=== PATIENT | male | born 1990 | race Caucasian/White ===

== ENCOUNTER 2017-05-23 15:50 | Emergency (ER) | payer BC, MEDICAID ==
--- NOTE | 2017-05-23 16:06 | EDM.PDOCBH ---
ED HPI GENERAL MEDICAL PROBLEM - General Chief Complaint: Behavioral/Psych Stated Complaint: [facility] Time Seen by Provider: 05/23/17 15:50 Source of Information: Reports: Patient, EMS History Limitations: Reports: No Limitations - History of Present Illness INITIAL COMMENTS - FREE TEXT/NARRATIVE: Patient is a 27-year-old male who attempted to commit suicide by choking himself with a karate belt. Patient states he was sitting at the edge of the bed and pulling on the belt from each side attempting to kill himself. Patient also cut his left wrist with a sharp knife. He states he has attempted to commit suicide 3 times in the past requiring inpatient treatment. The reason why he is suicidal is because he's been out of work since this past June. Found out that he was overdrawn today thus prompted to kill himself. He has not taken any medications or alcohol in excess. He is on no medications at this time for his depression/anxiety. Denies any recent alcohol use, recreational drug use, excessive acetaminophen, and excessive salicylates. Of note patient also attempted to cut his neck with a dull butter note. States he attempted to stab himself in the belly with a knife. Did not penetrate the shirt. He denies any auditory or visual hallucinations. - Related Data Allergies Allergy/AdvReac Type Severity Reaction Status Date / Time Iodinated Contrast- Oral and Allergy Shortness Verified 05/23/17 16:06 IV Dye of Breath [Iodinated Contrast Media - IV Dye] latex Allergy Hives Verified 05/23/17 16:06 Sulfa (Sulfonamide Allergy Hives Verified 05/23/17 16:06 Antibiotics) Home Meds: Home Meds . [No Known Home Meds] 10/23/15 [History] Past Medical History HEENT History: Reports: Other (See Below) Other HEENT History: impaired vision Gastrointestinal History: Reports: GERD Psychiatric History: Reports: Anxiety, Bipolar, Depression Social & Family History - Tobacco Use Smoking Status *Q: Current Some Day Smoker Years of Tobacco use: 10 Packs/Tins Daily: 0.2 - Alcohol Use Days Per Week of Alcohol Use: 0 - Recreational Drug Use Recreational Drug Use: No ED ROS GENERAL - Review of Systems Review Of Systems: ROS reveals no pertinent complaints other than HPI. ED EXAM, BEHAVIORAL HEALTH - Physical Exam Exam: See Below Exam Limited By: No Limitations General Appearance: Alert, WD/WN, Anxious, Other (cyring) Eye Exam: Bilateral Eye: PERRL Ears: Hearing Grossly Normal Nose: Normal Inspection Throat/Mouth: Normal Inspection, Normal Oropharynx, Normal Voice, No Airway Compromise Head: Atraumatic, Normocephalic Neck: Supple, Non-Tender, Full Range of Motion, Other (mild redness to the neck where belt was taunt. No pain with palpation. No expanding hematoma. No difficulties with swallowing. No change in voice noted. Patient has full range of motion.) Respiratory/Chest: No Respiratory Distress, Lungs Clear, No Accessory Muscle Use , Chest Non-Tender, Respiratory Distress Cardiovascular: Normal Peripheral Pulses, Regular Rate, Rhythm GI/Abdominal: Normal Bowel Sounds, Soft, Non-Tender, No Organomegaly, No Distention, Other (No puncture wounds to belly.) Extremities: Normal Range of Motion, Non-Tender, No Pedal Edema, Normal Capillary Refill, Other (Single superficial laceration to the left forearm. This measures approximately 0.5 cm. No bleeding present.) Neurological: Alert, Normal Mood/Affect, CN II-XII Intact, Normal Cognition, No Motor/Sensory Deficits, Oriented x 3 Psychiatric: Alert, Normal Affect, Normal Cognition, Oriented, Tearful, Suicidal Thoughts. No: Homicidal Thoughts, Auditory Hallucinations, Visual Hallucinations Skin Exam: Warm, Dry COURSE, BEHAVIORAL HEALTH COMP - Course Vital Signs: Last Vital Signs Temp 99.1 F 05/23/17 16:01 Pulse 95 05/23/17 16:01 Resp 16 05/23/17 16:01 BP 137/88 05/23/17 16:01 Pulse Ox 99 05/23/17 16:01 Orders, Labs, Meds: Active Orders 24 hr Category Date Time Status EKG Documentation Completion [RC] STAT Care 05/23/17 15:59 Active Laboratory Tests 05/23/17 05/23/17 05/23/17 Range/Units 16:10 16:10 16:10 WBC 4.49 (4.23-9.07) K/mm3 RBC 5.18 (4.63-6.08) M/mm3 Hgb 15.5 (13.7-17.5) gm/L Hct 44.0 (40.1-51.0) % MCV 84.9 (79.0-92.2) fl MCH 29.9 (25.7-32.2) pg MCHC 35.2 (32.2-35.5) g/dl RDW Std Deviation 39.9 (35.1-43.9) fL Plt Count 201 (163-337) K/mm3 MPV 9.7 (9.4-12.3) fl Neut % (Auto) 21.9 L (34.0-67.9) % Lymph % (Auto) 57.7 H (21.8-53.1) % Gray % (Auto) 12.0 (5.3-12.2) % Eos % (Auto) 7.1 H (0.8-7.0) Baso % (Auto) 0.9 (0.1-1.2) % Neut # (Auto) 0.98 L (1.78-5.38) K/mm3 Lymph # (Auto) 2.59 (1.32-3.57) K/mm3 Gray # (Auto) 0.54 (0.30-0.82) K/mm3 Eos # (Auto) 0.32 (0.04-0.54) K/mm3 Baso # (Auto) 0.04 (0.01-0.08) K/mm3 Manual Slide Review Abnormal smear Sodium 141 (136-145) mEq/L Potassium 3.3 L (3.5-5.1) mEq/L Chloride 107 (98-107) mEq/L Carbon Dioxide 25 (21-32) mEq/L Anion Gap 12.3 (5-15) BUN 14 (7-18) mg/dL Creatinine 1.1 (0.7-1.3) mg/dL Est Cr Clr Drug Dosing 109.74 mL/min Estimated GFR (MDRD) > 60 (>60) mL/min BUN/Creatinine Ratio 12.7 L (14-18) Glucose 106 (74-106) mg/dL Calcium 8.5 (8.5-10.1) mg/dL Total Bilirubin 0.4 (0.2-1.0) mg/dL AST 23 (15-37) U/L ALT 50 (16-63) U/L Alkaline Phosphatase 86 (46-116) U/L Total Protein 7.4 (6.4-8.2) g/dl Albumin 3.7 (3.4-5.0) g/dl Globulin 3.7 gm/dL Albumin/Globulin Ratio 1.0 (1-2) TSH 3rd Generation 1.195 (0.358-3.74) uIU/mL Salicylates 2.1 L (2.8-20) mg/dL Acetaminophen 0 L (10-30) ug/mL Ethyl Alcohol (0.00) gm% 05/23/17 Range/Units 16:10 WBC (4.23-9.07) K/mm3 RBC (4.63-6.08) M/mm3 Hgb (13.7-17.5) gm/L Hct (40.1-51.0) % MCV (79.0-92.2) fl MCH (25.7-32.2) pg MCHC (32.2-35.5) g/dl RDW Std Deviation (35.1-43.9) fL Plt Count (163-337) K/mm3 MPV (9.4-12.3) fl Neut % (Auto) (34.0-67.9) % Lymph % (Auto) (21.8-53.1) % Gray % (Auto) (5.3-12.2) % Eos % (Auto) (0.8-7.0) Baso % (Auto) (0.1-1.2) % Neut # (Auto) (1.78-5.38) K/mm3 Lymph # (Auto) (1.32-3.57) K/mm3 Gray # (Auto) (0.30-0.82) K/mm3 Eos # (Auto) (0.04-0.54) K/mm3 Baso # (Auto) (0.01-0.08) K/mm3 Manual Slide Review Sodium (136-145) mEq/L Potassium (3.5-5.1) mEq/L Chloride (98-107) mEq/L Carbon Dioxide (21-32) mEq/L Anion Gap (5-15) BUN (7-18) mg/dL Creatinine (0.7-1.3) mg/dL Est Cr Clr Drug Dosing mL/min Estimated GFR (MDRD) (>60) mL/min BUN/Creatinine Ratio (14-18) Glucose (74-106) mg/dL Calcium (8.5-10.1) mg/dL Total Bilirubin (0.2-1.0) mg/dL AST (15-37) U/L ALT (16-63) U/L Alkaline Phosphatase (46-116) U/L Total Protein (6.4-8.2) g/dl Albumin (3.4-5.0) g/dl Globulin gm/dL Albumin/Globulin Ratio (1-2) TSH 3rd Generation (0.358-3.74) uIU/mL Salicylates (2.8-20) mg/dL Acetaminophen (10-30) ug/mL Ethyl Alcohol 0.00 (0.00) gm% Re-Assessment/Re-Exam: Ordered basic labs including: CBC, C14, UA, drug screen, tsh, salicylate, acetaminophen, and EKG. EKG Sinus rhythm rate of [address] changes. Laceration to left forearm approximated with Steri-Strips. Patient refuses tetanus update. Labs reviewed: CBC essentially normal. Potassium mildly low at 3.3, TSH 1.195. Salicylates 2.1 low. Acetaminophen 0.0 low. UA and urine drug tox pending. [address] Keith honing machine set up operator psych provider at [facility]. She has accepted the patient. Requests all ED documentation along with 24 hr Emergency hold be faxed so that she can review. . A's is call back requesting cervical x-rays be obtained prior to transport. This been ordered. On initial exam patient has no pain with palpation of midline spine, paraspinal, lateral, and or anterior neck. 1909 [facility] Department initially stated they had someone to transport with initial call, but as of now do not. X-ray of the cervical spine reviewed with Dr. Arias with no acute bony abnormalities noted. Serum EtOH 0.00. For some reason urine drug tox was ordered but not completed prior to patient leaving. We have arranged a ride for the patient with the [facility]. Departure - Departure Time of Disposition: 20:05 Disposition: DC/Tfer to Psych Hosp/Unit 65 Condition: Good Clinical Impression: Suicide attempt, Intentional self-harm by strangulation - Discharge Information Referrals: PCP,None [Primary Care Provider] - Forms: ED Department Discharge - My Orders Last 24 Hours: My Active Orders 05/23/17 15:59 EKG Documentation Completion [RC] STAT - Assessment/Plan Last 24 Hours: My Active Orders 05/23/17 15:59 EKG Documentation Completion [RC] STAT
[2017-05-23 16:07] VITALS: BP 146/97
[2017-05-23 17:00] LABS: ACETAMINOPHEN 0 ug/mL (10-30)
--- NOTE | 2017-05-24 09:15 | CR ---
Cervical spine: AP, lateral and odontoid views of the cervical spine were obtained. Comparison: Prior CT cervical spine study of 10/14/11 is available. Vertebral body heights and disc spaces are preserved. Prevertebral soft tissues are normal. Mild scoliosis is seen. No fracture or subluxation is identified. Impression: 1. Mild scoliosis. 2. No additional abnormality is appreciated on three-view cervical spine exam. Diagnostic code #1
== END 2017-05-23 20:05 ==
LOC: JD.ED 15:50
DX: S51.812A Laceration without foreign body of left forearm, initial encounter (principal); F17.210 Nicotine dependence, cigarettes, uncomplicated; Z91.041 Radiographic dye allergy status; Z91.040 Latex allergy status; Z88.2 Allergy status to sulfonamides; X78.1XXA Intentional self-harm by knife, initial encounter
CPT/HCPCS: 36415; 72040; 80053; 84443; 85025; 93005; 99285; G0480; 99284

== ENCOUNTER 2017-07-02 04:49 | Emergency (ER) | payer MEDICAID ==
[2017-07-02 05:07] VITALS: BP 151/95
[2017-07-02] MEDS ORDERED: Alum Hydrox/Mag Hydrox/Simeth 30 ML, Lidocaine 2% 15 ML PO ONE ×2 (05:42)
--- NOTE | 2017-07-02 05:50 | EDM.PDOC ---
ED HPI GENERAL MEDICAL PROBLEM - General Chief Complaint: Gastrointestinal Problem Stated Complaint: FLU SYMPTOMS Time Seen by Provider: 07/02/17 04:50 Source of Information: Reports: Patient, Family History Limitations: Reports: No Limitations - History of Present Illness INITIAL COMMENTS - FREE TEXT/NARRATIVE: This is a 27-year-old male. This morning as he was sleeping he had some reflux and he woke up and vomited 1. He apparently took a couple of Tums and laid back down and the burning started again and he vomited again. He woke up his mother at that time and they decided to bring him to the ER. He's got a history of esophageal reflux for several months if not years and only takes his Tums at home. He has never tried Prilosec or Nexium or any other over-the- counter antacid pill. He also complains of his right lower molar being painful and infected though he does have a dentist appointment on the . He denies any fever or chills he denies any shortness of breath he denies any other acute symptoms. He might have a slight upper respiratory nasal congestion. Abdominal Pain Score (Numeric/FACES): 3 - Related Data Allergies Allergy/AdvReac Type Severity Reaction Status Date / Time Iodinated Contrast- Oral and Allergy Shortness Verified 05/23/17 16:06 IV Dye of Breath [Iodinated Contrast Media - IV Dye] latex Allergy Hives Verified 05/23/17 16:06 Sulfa (Sulfonamide Allergy Hives Verified 05/23/17 16:06 Antibiotics) Home Meds: Home Meds Penicillin V Potassium [IJD: Penicillin V Potassium] 500 mg PO .EVERY 6 HOURS # 40 tab 07/02/17 [Rx] Past Medical History HEENT History: Reports: Other (See Below) Other HEENT History: impaired vision Gastrointestinal History: Reports: GERD Psychiatric History: Reports: Anxiety, Bipolar, Depression Social & Family History - Family History Family Medical History: Noncontributory - Tobacco Use Smoking Status *Q: Current Every Day Smoker Years of Tobacco use: 12 Packs/Tins Daily: 1 - Caffeine Use Caffeine Use: Reports: None - Alcohol Use Days Per Week of Alcohol Use: 1 Number of Drinks Per Day: 1 Total Drinks Per Week: 1 - Recreational Drug Use Recreational Drug Use: No ED ROS GENERAL - Review of Systems Review Of Systems: See Below Constitutional: Denies: Fever, Chills HEENT: Reports: Rhinitis, Other (Tooth pain). Denies: Throat Pain, Throat Swelling Respiratory: Denies: Shortness of Breath, Cough Cardiovascular: Denies: Chest Pain Endocrine: Reports: No Symptoms GI/Abdominal: Reports: Vomiting, Other (Esophageal reflux) : Reports: No Symptoms Musculoskeletal: Reports: No Symptoms Skin: Reports: No Symptoms Neurological: Reports: No Symptoms Psychiatric: Reports: No Symptoms Hematologic/Lymphatic: Reports: No Symptoms ED EXAM, GI/ABD - Physical Exam Exam: See Below Exam Limited By: No Limitations General Appearance: Alert, WD/WN, No Apparent Distress Eyes: Bilateral: Normal Appearance Ears: Normal External Exam, Normal Canal, Normal TMs Nose: Normal Inspection, Clear Rhinorrhea Throat/Mouth: Normal Inspection, Normal Lips, Normal Voice, No Airway Compromise , Other (His right back molar has advanced dental caries noted, no swelling no lymphadenopathy no gum swelling or abscess noted) Head: Normocephalic Neck: Supple, Non-Tender Respiratory/Chest: No Respiratory Distress, Lungs Clear, Normal Breath Sounds Cardiovascular: Regular Rate, Rhythm, No Murmur GI/Abdominal Exam: Soft, Non-Tender Back Exam: Full Range of Motion Extremities: Normal Inspection, Normal Range of Motion Neurological: Alert, Oriented Psychiatric: Normal Affect, Normal Mood Skin Exam: Warm, Dry Course - Vital Signs Last Recorded V/S: Last Vital Signs Temp Pulse 101 H 07/02/17 05:03 Resp 18 07/02/17 05:03 BP 151/95 H 07/02/17 05:03 Pulse Ox 97 07/02/17 05:03 - Orders/Labs/Meds Meds: Medications Discontinued Medications Generic Name Dose Route Start Last Admin Trade Name Raven PRN Reason Stop Dose Admin Al Hydroxide/Mg Hydroxide 30 0 ml 07/02/17 05:42 07/02/17 05:47 ml/ Lidocaine HCl 15 ml PO 07/02/17 05:43 45 ml ONETIME ONE Administration - Re-Assessments/Exams Free Text/Narrative Re-Assessment/Exam: 07/02/17 07:00 Spoke to the patient about his positive influenza B test. I'll provide some antibiotics for his infected back molar and suggests some medications for his reflux that's [id number]. The GI cocktail that he took he says made him feel much better. 07/02/17 07:01 Departure - Departure Time of Disposition: 07:01 Disposition: Home, Self-Care 01 Condition: Good Clinical Impression: Influenza B, Dental infection, Pain, dental Esophageal reflux Qualifiers: Esophagitis presence: without esophagitis Qualified Code(s): K21.9 - Gastro- esophageal reflux disease without esophagitis - Discharge Information Prescriptions: Penicillin V Potassium [IJD: Penicillin V Potassium] 500 mg PO .EVERY 6 HOURS # 40 tab Forms: ED Department Discharge Additional Instructions: Once you get your antibiotics take them faithfully for the infected tooth and follow up with her dentist on the as you have are rescheduled, consider giving some [id number] either Prilosec or Nexium to help with the reflux especially take it before bedtime to help at night time, be careful with good handwashing and covering your mouth when you cough or sneeze to prevent the spread of the influenza B, follow-up with your family doctor later this week for recheck, return to the ER if needed
== END 2017-07-02 07:18 | disposition home or self-care (01) ==
LOC: JD.ED 04:49
DX: J10.1 Influenza due to other identified influenza virus with other respiratory manifestations (principal); K04.7 Periapical abscess without sinus; K21.9 Gastro-esophageal reflux disease without esophagitis; F17.210 Nicotine dependence, cigarettes, uncomplicated; Z91.041 Radiographic dye allergy status; Z91.040 Latex allergy status; Z88.2 Allergy status to sulfonamides
CPT/HCPCS: 87804; 99284; A9270; 99283

== ENCOUNTER 2018-06-17 09:59 | Emergency (ER) | payer MEDICAID ==
[2018-06-17 10:09] VITALS: BP 134/81
[2018-06-17] MEDS ORDERED: Sodium Chloride 0.9% 10 ML Syringe FLUSH PRN (10:10)
[2018-06-17] MEDS ORDERED: Sodium Chloride 0.9% 1,000 ML IV ONE (10:13)
[2018-06-17] MEDS ORDERED: Ketorolac 30 MG/ML SDV IVPUSH ONE (10:13)
--- NOTE | 2018-06-17 10:55 | EDM.PDOC ---
ED HPI GENERAL MEDICAL PROBLEM - General Chief Complaint: Abdominal Pain Stated Complaint: LT SIDE PAIN Time Seen by Provider: 06/17/18 10:11 Source of Information: Reports: Patient History Limitations: Reports: No Limitations - History of Present Illness INITIAL COMMENTS - FREE TEXT/NARRATIVE: The patient is a previously healthy 28-year-old male with a chief complaint of left-sided abdominal pain. He states it started gradually about 4 days ago. There is no provoking factor. The pain initially was waxing and waning, today is more constant and more severe. He's also had a few days of diarrhea. No blood in the diarrhea. Denies recent travel, exposure to contaminated food or water, or recent antibiotics. No vomiting. No fever. No nausea. He is also noticed that his urine seems dark, not certain whether or not there is blood in the urine. No dysuria. No cough or trouble breathing. Hasn't taken anything for it at home. No additional complaint. Left Lower Abdomen Pain Score (Numeric/FACES): 7 - Related Data Allergies Allergy/AdvReac Type Severity Reaction Status Date / Time Iodinated Contrast- Oral and Allergy Shortness Verified 06/17/18 10:09 IV Dye of Breath [Iodinated Contrast Media - IV Dye] latex Allergy Hives Verified 06/17/18 10:09 Sulfa (Sulfonamide Allergy Hives Verified 06/17/18 10:09 Antibiotics) Home Meds: Home Meds lamoTRIgine [Lamictal] 75 mg PO DAILY 06/17/18 [History] Past Medical History HEENT History: Reports: Other (See Below) Other HEENT History: impaired vision Gastrointestinal History: Reports: GERD Psychiatric History: Reports: Anxiety, Bipolar, Depression Social & Family History - Family History Family Medical History: Noncontributory - Tobacco Use Smoking Status *Q: Current Every Day Smoker Years of Tobacco use: 13 Packs/Tins Daily: 1 - Caffeine Use Caffeine Use: Reports: Coffee, Soda - Recreational Drug Use Recreational Drug Use: No ED ROS GENERAL - Review of Systems Review Of Systems: See Below Constitutional: Denies: Fever HEENT: Reports: No Symptoms Respiratory: Denies: Shortness of Breath Cardiovascular: Denies: Chest Pain Endocrine: Reports: No Symptoms GI/Abdominal: Reports: Abdominal Pain, Diarrhea : Reports: Flank Pain. Denies: Dysuria Musculoskeletal: Reports: No Symptoms Skin: Reports: No Symptoms Neurological: Reports: No Symptoms Psychiatric: Reports: No Symptoms ED EXAM, GI/ABD - Physical Exam Exam: See Below Exam Limited By: No Limitations General Appearance: Alert, WD/WN, No Apparent Distress Eyes: Bilateral: Normal Appearance Ears: Normal External Exam Nose: Normal Inspection Throat/Mouth: Normal Inspection, Normal Oropharynx, Normal Voice, No Airway Compromise Head: Atraumatic, Normocephalic Neck: Normal Inspection, Supple, Non-Tender, Full Range of Motion Respiratory/Chest: No Respiratory Distress, Lungs Clear, Normal Breath Sounds Cardiovascular: Normal Peripheral Pulses, Regular Rate, Rhythm, No Edema GI/Abdominal Exam: Soft, Other (Left upper quadrant and left lower quadrant tenderness, no rebound or guarding) Back Exam: CVA Tenderness (L) Extremities: Normal Inspection Neurological: Alert, Oriented, Normal Cognition, No Motor/Sensory Deficits Psychiatric: Normal Affect, Normal Mood Skin Exam: Warm, Dry, Intact, Normal Color, No Rash Course - Vital Signs Last Recorded V/S: Last Vital Signs Temp 36.6 C 06/17/18 10:05 Pulse 100 06/17/18 10:05 Resp 16 06/17/18 10:05 BP 134/81 06/17/18 10:05 Pulse Ox 98 06/17/18 10:05 - Orders/Labs/Meds Orders: Active Orders 24 hr Category Date Time Status Peripheral IV Care [RC] . DIRECTED Care 06/17/18 10:11 Active Peripheral IV Care [RC] . DIRECTED Care 06/17/18 10:11 Active Sodium Chloride 0.9% [Saline Flush] Med 06/17/18 10:10 Active 10 ml FLUSH ASDIRECTED PRN Peripheral IV Insertion Adult [OM.PC] Routine Oth 06/17/18 10:11 Ordered Medication Orders Sodium Chloride (Saline Flush) 10 ml FLUSH ASDIRECTED PRN PRN Reason: Keep Vein Open Last Admin: 06/17/18 10:34 Dose: 10 ml Labs: Laboratory Tests 06/17/18 06/17/18 06/17/18 Range/Units 10:39 10:39 11:02 WBC 9.61 H (4.23-9.07) K/mm3 RBC 5.25 (4.63-6.08) M/mm3 Hgb 15.2 (13.7-17.5) gm/L Hct 45.0 (40.1-51.0) % MCV 85.7 (79.0-92.2) fl MCH 29.0 (25.7-32.2) pg MCHC 33.8 (32.2-35.5) g/dl RDW Std Deviation 40.3 (35.1-43.9) fL Plt Count 252 (163-337) K/mm3 MPV 10.8 (9.4-12.3) fl Neut % (Auto) 64.1 (34.0-67.9) % Lymph % (Auto) 29.6 (21.8-53.1) % Esmeralda % (Auto) 3.7 L (5.3-12.2) % Eos % (Auto) 1.9 (0.8-7.0) Baso % (Auto) 0.4 (0.1-1.2) % Neut # (Auto) 6.16 H (1.78-5.38) K/mm3 Lymph # (Auto) 2.84 (1.32-3.57) K/mm3 Esmeralda # (Auto) 0.36 (0.30-0.82) K/mm3 Eos # (Auto) 0.18 (0.04-0.54) K/mm3 Baso # (Auto) 0.04 (0.01-0.08) K/mm3 Sodium 144 (136-145) mEq/L Potassium 3.7 (3.5-5.1) mEq/L Chloride 108 H (98-107) mEq/L Carbon Dioxide 24 (21-32) mEq/L Anion Gap 15.7 H (5-15) BUN 11 (7-18) mg/dL Creatinine 0.9 (0.7-1.3) mg/dL Est Cr Clr Drug Dosing 132.93 mL/min Estimated GFR (MDRD) > 60 (>60) mL/min BUN/Creatinine Ratio 12.2 L (14-18) Glucose 93 (74-106) mg/dL Calcium 8.9 (8.5-10.1) mg/dL Total Bilirubin 0.3 (0.2-1.0) mg/dL AST 17 (15-37) U/L ALT 34 (16-63) U/L Alkaline Phosphatase 76 (46-116) U/L Total Protein 7.2 (6.4-8.2) g/dl Albumin 4.1 (3.4-5.0) g/dl Globulin 3.1 gm/dL Albumin/Globulin Ratio 1.3 (1-2) Urine Color Yellow (Yellow) Urine Appearance Clear (Clear) Urine pH 5.5 (5.0-8.0) Ur Specific [place] > or = 1.030 (1.005-1.030) Urine Protein Trace H (Negative) Urine Glucose (UA) Negative (Negative) Urine Ketones Trace H (Negative) Urine Occult Blood Negative (Negative) Urine Nitrite Negative (Negative) Urine Bilirubin Negative (Negative) Urine Urobilinogen 0.2 (0.2-1.0) Ur Leukocyte Esterase Negative (Negative) Urine RBC 0-5 (0-5) /hpf Urine WBC 0-5 (0-5) /hpf Ur Epithelial Cells 5-10 H (0-5) /hpf Urine Bacteria Few (FEW) /hpf Urine Mucus Many H (FEW) /hpf Meds: Medications Generic Name Dose Route Start Last Admin Trade Name Freq PRN Reason Stop Dose Admin Sodium Chloride 10 ml 06/17/18 10:10 06/17/18 10:34 Saline Flush FLUSH 10 ml ASDIRECTED PRN Administration Keep Vein Open Discontinued Medications Generic Name Dose Route Start Last Admin Trade Name Frebella PRN Reason Stop Dose Admin Sodium Chloride 1,000 mls @ 1,000 mls/hr 06/17/18 10:13 06/17/18 10:36 Normal Saline IV 06/17/18 11:12 1,000 mls/hr ONETIME ONE Administration Ketorolac Tromethamine 30 mg 06/17/18 10:13 Toradol IVPUSH 06/17/18 10:14 ONETIME ONE - Re-Assessments/Exams Free Text/Narrative Re-Assessment/Exam: 06/17/18 11:41 UA shows trace ketones, no hematuria. Normal white blood cell count. No left shift. He is feeling better after IV fluids. He declined pain medication. On reexamination, he has minimal left-sided abdominal tenderness. I suspect that his symptoms are due to gastroenteritis, likely viral. Discussed risks/benefits of CT scan to rule out diverticulitis or other intra-abdominal infection. Given improvement in pain without medications, benign abdominal exam, and age, my suspicion for diverticulitis is low. Patient would prefer to go home and declines scan at this time. He agrees to return if his pain worsens or if he gets a fever or other concerning symptoms. Departure - Departure Time of Disposition: 11:43 Disposition: Home, Self-Care 01 Clinical Impression: Mild dehydration Diarrhea Qualifiers: Diarrhea type: presumed infectious Qualified Code(s): R19.7 - Diarrhea, unspecified Abdominal pain Qualifiers: Abdominal location: left lower quadrant Qualified Code(s): R10.32 - Left lower quadrant pain - Discharge Information Referrals: PCP,None [Primary Care Provider] - Forms: ED Department Discharge Additional Instructions: 1. Drink plenty of fluids. [place] diet until you feel better. 2. OK to take acetaminophen (Tylenol) and/or ibuprofen as needed for pain 3. Return to the ED if you have worsening abdominal pain, fever, or any other concerning symptoms 4. Otherwise follow up with a regular doctor when able. Call [phone] if you'd like to schedule with a provider here. - My Orders Last 24 Hours: My Active Orders 06/17/18 10:10 Sodium Chloride 0.9% [Saline Flush] 10 ml FLUSH ASDIRECTED PRN 06/17/18 10:11 Peripheral IV Care [RC] . DIRECTED Peripheral IV Care [RC] . DIRECTED Peripheral IV Insertion Adult [OM.PC] Routine - Assessment/Plan Last 24 Hours: My Active Orders 06/17/18 10:10 Sodium Chloride 0.9% [Saline Flush] 10 ml FLUSH ASDIRECTED PRN 06/17/18 10:11 Peripheral IV Care [RC] . DIRECTED Peripheral IV Care [RC] . DIRECTED Peripheral IV Insertion Adult [OM.PC] Routine
== END 2018-06-17 12:04 | disposition home or self-care (01) ==
LOC: JD.ED 09:59
DX: E86.0 Dehydration (principal); R10.32 Left lower quadrant pain; R10.12 Left upper quadrant pain; R19.7 Diarrhea, unspecified; Z88.2 Allergy status to sulfonamides; Z91.040 Latex allergy status; Z91.041 Radiographic dye allergy status; F17.210 Nicotine dependence, cigarettes, uncomplicated
CPT/HCPCS: 36415; 80053; 81001; 85025; 96360; 99284; J7040; 99283

== ENCOUNTER 2024-07-01 06:38 | Emergency (ER) | payer MEDICAID ==
[2024-07-01 06:50] VITALS: BP 139/92; PULSE 96
== END 2024-07-01 08:03 | disposition home or self-care (01) ==
LOC: JD.ED 06:38
DX: J06.9 Acute upper respiratory infection, unspecified (principal); B34.9 Viral infection, unspecified; F17.210 Nicotine dependence, cigarettes, uncomplicated; Z88.2 Allergy status to sulfonamides; Z91.040 Latex allergy status; Z91.041 Radiographic dye allergy status; Z79.899 Other long term (current) drug therapy
CPT/HCPCS: 71045; 71045-26; 87428-QW; 99283

== ENCOUNTER 2025-04-02 02:10 | Emergency (ER) | payer MEDICAID ==
[2025-04-02 02:23] VITALS: BP 151/95; PULSE 102
[2025-04-02] MEDS ORDERED: Sodium Chloride 0.9% 10 ML Syringe FLUSH PRN (02:33)
[2025-04-02 02:53] LABS: BASOPHILS ABSOLUTE AUTO 0.1 K/mm3 (0.0-0.2); BASOPHILS PERCENT AUTO 0.7 % (0.0-1.0); EOSINOPHILS ABSOLUTE AUTO 0.9 K/mm3 (0.0-0.4); EOSINOPHILS PERCENT AUTO 6.2 % (0.0-6.0); IMMATURE GRAN ABSOLUTE AUTO 0.07 K/mm3 (0.00-0.05); IMMATURE GRAN PERCENT AUTO 0.5 % (0.0-0.4); LYMPHOCYTES ABSOLUTE AUTO 3.5 K/mm3 (1.0-4.8); LYMPHOCYTES PERCENT AUTO 23.7 % (24.0-44.0); MEAN PLATELET VOLUME 10.5 fl (9.4-12.4); MONOCYTES ABSOLUTE AUTO 0.9 K/mm3 (0.0-0.8); MONOCYTES PERCENT AUTO 5.8 % (0.0-8.0); NEUTROPHILS ABSOLUTE AUTO 9.2 K/mm3 (1.8-7.7); NEUTROPHILS PERCENT AUTO 63.1 % (41.0-71.0); NRBC ABSOLUTE 0.00 (0.00-0.02); NRBC PERCENT 0.0 % (0.0-0.2); PLATELET COUNT,PLT 270 K/mm3 (150-400); RED BLOOD CELL COUNT 5.58 M/mm3 (4.52-5.90); WHITE BLOOD CELL COUNT,WBC 14.57 K/mm3 (3.9-11.3)
[2025-04-02] MEDS: Ketorolac 30 MG/ML SDV IVPUSH ONE (02:58)
[2025-04-02 03:27] LABS: A/G RATIO 1.0 (1-2); ALANINE AMINOTRANSFERASE,ALT 33.0 U/L (16-63); ASPARTATE AMNIOTRANSFERASE,AST 19.0 U/L (15-37); BILIRUBIN TOTAL 0.4 mg/dL (0.2-1.0); BLOOD UREA NITROGEN,BUN 13.0 mg/dL (7-18); CARBON DIOXIDE,CO2 25.0 mEq/L (21-32); CHLORIDE,CL 105.0 mEq/L (98-107); CREATININE 1.0 mg/dL (0.7-1.3); EST CRCL DRUG DOSING (CG) 109.81 mL/min; ESTIMATED GFR 101.0 mL/min (>60); GLUCOSE RANDOM 107.0 mg/dL (70-99); POTASSIUM,K 3.4 mEq/L (3.5-5.1); PROTEIN TOTAL,TP 7.6 g/dl (6.4-8.2); SODIUM,NA 141.0 mEq/L (136-145)
== END 2025-04-02 05:10 | disposition home or self-care (01) ==
LOC: JD.ED 02:10
DX: J40 Bronchitis, not specified as acute or chronic (principal); R10.31 Right lower quadrant pain; E86.0 Dehydration; Z91.041 Radiographic dye allergy status; Z88.2 Allergy status to sulfonamides; Z91.040 Latex allergy status; Z88.8 Allergy status to other drugs, medicaments and biological substances; Z86.16 Personal history of COVID-19
CPT/HCPCS: 36415; 71046; 74176; 80053; 83690; 85025; 86140; 87428; 96361; 96374; 99285; A9270; J1885; J7030; 99283